=== PATIENT | male | born 1955 | race Caucasian/White ===

== ENCOUNTER 2016-05-14 13:06 | Emergency (ER) | payer OTHER ==
--- NOTE | 2016-05-14 16:26 | ER PHYSICIAN DOCUMENTATION ---
Physician Documentation [facility] Name:Jose Jim Age:60 yrs Sex:Male :1955 Arrival Date:05/14/2016 Time:13:06 BedTrauma A Private MD:Gerardo Garcia EDTraceyChivo Disposition: 05/14 17:22 Chart complete. tl1 Disposition: 05/14/16 14:40 Discharged to Home/Self Care. Impression: Anaphylaxis. - Condition is Good. - Discharge Instructions: ANAPHYLAXIS, General. - Medical Reconciliation form form. - Follow up: Gerardo Garcia MD; When: As needed; Reason: Continuance of care. - Problem is an ongoing problem. - Symptoms are resolved. - Notes: Make sure to return for any recurrence of anaphylaxis symptoms such as wheezing, trouble breathing , swelling anywhere in your airway or mouth, lightheadeness, abdominal pain or vomiting. There is some question in my mind about whether you could have angioedema. Ask your bulk delivery driver, Dr Aguirre, about this possibility. HPI: 13:08 This 60 yrs old Male presents to ER with complaints of Allergic Reaction. tl1 13:10 He is a vague and tangential historian. As best I can tell, he has a long history of tl1 environmental allergies, especially to wood, and has had multiple moderate to severe allergic reactions for which he has had to take an EPI pen. He said he had to be intubated once. His last bad reaction was to redwood dust in 12/17. Since then he sometimes takes variable amounts of prednisone occasionally, and he is remarkably imprecise about this. he says about 5 days ago he was told to stop his allergy medications so that he can have some allergy testing 5 days from now. . he says he was fine this AM. He ate a breakfast with some kind of hot sauce with this, some kind of hot dog, cheese, salt, pepper, and some other at about 10 AM, and choked on some of it while eating. Over the next 20 - 30 minutes, he developed swelling in his tongue, tightness in his throat, cough, and mild dyspnea. Having said that, his vocabulary seems somewhat limited and understanding what he is trying to say is very challenging. At about [id number], he self administered an epi pen along with 50 mg of benadryl, 30 mg of prednisone, and 10 mg of Zyrtec. Over the next half hour or so he felt better, but his symptoms then started to recur and at 1245, he took another 0.3 mg of IM epinephrine, via the epi-pen, and decided to come here. At this time, all his symptoms are improving.. . He says his mouth is dry and this makes it difficult to swallow, but when I interviewed him, his only other symptom was that the lateral aspects of his tongue seemed a little swollen. He also said, and his confirmed , that his neck was, and still is somewhat swollen. No swelling of his face or lips.. Historical: - Allergies: Norvasc; - Home Meds: 1. Metformin Oral 2. Omeprazole Oral 3. Zyrtec Oral 4. ranitidine HCl Oral 5. Prednisone Oral - PMHx: HYPERTENSION; DIABETES - NIDDM; allergic reaction with intubation; Angioedema (August 10, 2015); Acute Allergic Reaction (January 08, 2016); Angioedema - of Tongue (January 04, 2016); - PSHx: Lumbar back surgery; foot surgery; - Tetanus: < 10 years. - Ebola Screening: : Patient negative for fever greater than or equal to 101.5 degrees Fahrenheit, and additional compatible Ebola Virus Disease symptoms. Patient denies exposure to infectious person. Patient denies travel to an Ebola-affected area in the 21 days before illness onset. No symptoms or risks identified at this time. . - Immunization history: Flu Vaccine >1 year. - Social history: Smoking status: Patient states was never smoker of tobacco. ROS: 13:15 Cardiovascular: Negative for chest pain, edema, orthopnea, paroxysmal nocturnal dyspnea.tl1 13:15 Respiratory: Positive for cough, shortness of breath, wheezing, Negative for dyspnea on exertion, hemoptysis, orthopnea. 13:15 Abdomen/GI: Negative for abdominal pain, nausea, vomiting, diarrhea, hematemesis, black/tarry stool, rectal bleeding, bowel incontinence. 13:15 Skin: Positive for Itching both ulnar forearms and elbows, at about the same time as his airway symptoms. No urticaria.. 13:15 All other systems are negative. Exam: 13:15 Constitutional: This is a well developed, well nourished patient who is awake, alert, tl1 and in no acute distress. Head/Face: Normocephalic, atraumatic. 13:15 Eyes: Pupils equal round and reactive to light, extra-ocular motions intact. Lids and tl1 lashes normal. Conjunctiva and sclera are non-icteric and not injected. Cornea within normal limits. Periorbital areas with no swelling, redness, or edema. 13:15 Constitutional: The patient appears obese. 13:15 ENT: Mouth: Lips: normal, Oral mucosa: pink and intact, dry, Gums: normal with healthy appearance, Tongue: large. Hard to tell what change if any, there is from baseline., Posterior pharynx: is normal, Voice: is normal. 13:15 Neck: Exam negative for acute changes, It does not appear grossly swollen to me; his says it seems mildly swollen, still. 13:15 Respiratory: the patient does not display signs of respiratory distress, Respirations: normal, Breath sounds: are normal, no decreased breath sounds, no rales, rhonchi, no stridor, no wheezing. 13:15 Abdomen/GI: Inspection: distension, that is mild, obese., Bowel sounds: normal, Palpation: abdomen is soft and non-tender. 13:15 Back: Well healed midline lumbar scar.. 13:15 Skin: Dry elbows and forearms. No rash. Specifically, no urticaria.. 13:15 Neuro: Exam negative for acute changes. Vital Signs: 13:20 BP 192 / 93; Pulse 106; Resp 22; Pulse Ox 94% on R/A; tg 13:43 Temp 98.5(TE); tg 13:55 BP 181 / 102; Pulse 99; Resp 22; Pulse Ox 91% on R/A; tg 14:36 BP 171 / 82; Pulse 88; Resp 17; Pulse Ox 92% on R/A; tg 15:22 BP 146 / 82; Pulse 16; Resp 18; Pulse Ox 92% on R/A; tg 16:24 Pulse 84; Resp 18; Pulse Ox 93% on R/A; Pain 0/10; tg MDM: 13:08 Patient medically screened. tl1 15:00 Differential diagnosis: anaphylaxis, angioedema. Data reviewed: vital signs, nurses tl1 notes, and as a result, I will discharge patient. Counseling: I had a detailed discussion with the patient and/or guardian regarding: the historical points, exam findings, and any diagnostic results supporting the discharge/admit diagnosis, the need for outpatient follow up, to return to the emergency department if symptoms worsen or persist or if there are any questions or concerns that arise at home. ED course: He was initially hypertensive and tachycardic. He had recently taken all appropriate medications for a possible anaphylactic or anaphylactoid reaction. He was observed for about 3 hours and had gradual and nearly complete resolution of all his symptoms except for a dry mouth. His blood pressure and pulse came down gradually and significantly. I told him I am not sure what to make of his symptoms; possibly breakfast. . Indeed, it is a significant challenge to understand what they are and the timeline. He is not sure what could have set them off. He says he has an appointment with his bulk delivery driver, Dr Aguirre, in 5 days, and I told him to keep it. He has at least 5 epi-pens at home, and I told him that if he ever uses his Epi-pen once, he should come to the ED immediately for observation.. Dispensed Medications: No medications were administered Signatures: Teodoro Montgomery, EVELYNE RN Chivo Wagner MD MD tl1
--- NOTE | 2016-05-14 16:26 | ER NURSING DOCUMENTATION ---
Nurse's Notes [facility] Name:Jose Jim Age:60 yrs Sex:Male :1955 Arrival Date:05/14/2016 Time:13:06 BedTrauma A Private MD:Gerardo Garcia Diagnosis:Anaphylaxis Presentation: 05/14 13:07 Acuity: CHRISTEL 2 tg 13:15 Presenting complaint: Patient states: Pt has a hx of anaphylaxis, today while eating tg eggs felt his throat swelling and began coughing, administered his own epi pen. Symptoms improved for some time, then worsened. Pt administered 2nd epi-pen and took all his PO allergy meds (he had stopped these a few days ago prior to a visit to [facility] that [facility] coming [facility]). Transition of care: patient was not received from another setting of care. Onset: The symptoms/episode began/occurred suddenly, this morning. 13:15 Method Of Arrival: Private Vehicle tg 15:19 Anaphylaxis evaluation, no signs or symptoms of anaphylaxis were noted. tg Triage Assessment: 13:43 General: Appears in no apparent distress, Behavior is cooperative, pleasant. Pain: tg Denies pain. Neuro: Level of Consciousness is awake, alert. Cardiovascular: Capillary refill < 3 seconds. Respiratory: Respiratory effort is even, unlabored. Respiratory: Breath sounds are clear bilaterally. :. Derm: Skin is pink, warm & dry. Historical: - Allergies: Norvasc; - Home Meds: 1. Metformin Oral 2. Omeprazole Oral 3. Zyrtec Oral 4. ranitidine HCl Oral 5. Prednisone Oral - PMHx: HYPERTENSION; DIABETES - NIDDM; allergic reaction with intubation; Angioedema (August 10, 2015); Acute Allergic Reaction (January 08, 2016); Angioedema - of Tongue (January 04, 2016); - PSHx: Lumbar back surgery; foot surgery; - Tetanus: < 10 years. - Ebola Screening: : Patient negative for fever greater than or equal to 101.5 degrees Fahrenheit, and additional compatible Ebola Virus Disease symptoms. Patient denies exposure to infectious person. Patient denies travel to an Ebola-affected area in the 21 days before illness onset. No symptoms or risks identified at this time. . - Immunization history: Flu Vaccine >1 year. - Social history: Smoking status: Patient states was never smoker of tobacco. Screenin:43 Infectious Disease Risk Unable to Obtain. Abuse screen: Denies threats or abuse. Denies tg injuries from another. Nutritional screening: No deficits noted. Assessment: 13:43 See Triage Assessment done by same RN. tg 14:24 Reassessment: Patient states feeling better. tg 14:46 Reassessment: Pt and requested to sit in the waiting room after discharge from ED tg since pt is still not feeling "normal." Pt instead will stay in ED, on monitors, until feeling well enough for DC. . 15:57 Respiratory: Airway is patent. tg Vital Signs: 13:20 BP 192 / 93; Pulse 106; Resp 22; Pulse Ox 94% on R/A; tg 13:43 Temp 98.5(TE); tg 13:55 BP 181 / 102; Pulse 99; Resp 22; Pulse Ox 91% on R/A; tg 14:36 BP 171 / 82; Pulse 88; Resp 17; Pulse Ox 92% on R/A; tg 15:22 BP 146 / 82; Pulse 16; Resp 18; Pulse Ox 92% on R/A; tg 16:24 Pulse 84; Resp 18; Pulse Ox 93% on R/A; Pain 0/10; tg ED Course: 13:07 Patient arrived in ED. ama 13:07 Gerardo Garcia MD is Private Physician. ama 13:07 Teodoro Montgomery RN is Primary Nurse. tg 13:07 Triage completed. tg 13:08 Chivo Webb MD is Attending Physician. tl1 13:41 Arm band placed on. tg 13:41 Valuables Remains with patient. Cardiac Monitoring On for Nurse Monitoring only. Pulse tg Ox - RN Monitoring Only NIBP On - RN Monitoring Only. 13:41 Inserted peripheral IV: 20 gauge in left antecubital area and blood collected. tg 13:55 Assisted to bathroom. tg 15:22 Assisted to bathroom. tg 16:25 Gerardo Garcia MD is Referral Physician. tg Administered Medications: No medications were administered Outcome: 14:40 Discharge ordered by . tl1 16:24 Discharged to home ambulatory, with family. tg 16:24 Condition: stable 16:24 Discharge Assessment: Patient awake and alert. 16:24 Instructed on discharge instructions, follow up and referral plans. 16:24 IV D/Shilo 16:25 Patient left the ED. tg Signatures: Teodoro Montgomery, RN RN Jose Mulligan, Reg Reg Chivo Hopkins MD MD tl1
== END 2016-05-14 16:25 | disposition home or self-care (01) ==
LOC: ER 13:06
DX: T78.2XXA Anaphylactic shock, unspecified, initial encounter (principal); I10 Essential (primary) hypertension; R00.0 Tachycardia, unspecified; L98.8 Other specified disorders of the skin and subcutaneous tissue; R68.2 Dry mouth, unspecified; E11.9 Type 2 diabetes mellitus without complications; Z79.899 Other long term (current) drug therapy
CPT/HCPCS: 99283

== ENCOUNTER 2016-05-20 05:30 | Emergency (ER) | payer OTHER ==
--- NOTE | 2016-05-20 09:41 | ER NURSING DOCUMENTATION ---
Nurse's Notes [facility] Name:Jose Jim Age:60 yrs Sex:Male :1955 Arrival Date:05/20/2016 Time:05:30 Bed3 Private MD:Gerardo Garcia Diagnosis:Angioedema Presentation: 05/20 05:40 Presenting complaint: Patient states: felt like throat was closing up at home, used epi lb pen and took benadryl. denies rash. Transition of care: Home. 05:40 Acuity: CHRISTEL 3 lb 05:40 Method Of Arrival: Walk In lb 05:41 Onset: The symptoms/episode began/occurred suddenly, 1 hour(s) ago. Anaphylaxis lb evaluation, no signs or symptoms of anaphylaxis were noted. Notified ED Physician of Blu Amaral notified. Triage Assessment: 05:42 General: Appears in no apparent distress, Behavior is pleasant. Pain: Denies pain. lb Respiratory: Airway is patent Trachea midline Respiratory effort is even, unlabored, Respiratory pattern is regular, Breath sounds are clear bilaterally. Historical: - Allergies: No known drug Allergies; - Home Meds: 1. Metformin Oral 2. Omeprazole Oral - PMHx: Diabetes - NIDDM; - PSHx: back; - Tetanus: < 10 years. - Ebola Screening: : Patient negative for fever greater than or equal to 101.5 degrees Fahrenheit, and additional compatible Ebola Virus Disease symptoms. Patient denies exposure to infectious person. Patient denies travel to an Ebola-affected area in the 21 days before illness onset. No symptoms or risks identified at this time. . - Immunization history: Flu Vaccine None. - Social history: Smoking status: Patient states was never smoker of tobacco. Patient uses alcohol only on a social basis. - Code Status:: Full code. Screenin:49 Infectious Disease Risk None. Abuse screen: Denies threats or abuse. Denies injuries lb from another. Nutritional screening: No deficits noted. Assessment: 05:49 See Triage Assessment done by same RN. Respiratory: Airway is patent Trachea midline lb Respiratory effort is even, unlabored, Respiratory pattern is regular. 07:26 General: pt resting quietly pt states his throat still feels tight but no tighter then st it has been. pt has no troubles breathing, talking or managing secreations.. 08:39 General: pt states that his throat swelling seems to come and go now getting better and st then coming back. Pt is having no troubles breathing or talking.. 09:40 General: pt states he is feeling better and would like to go home. . st Vital Signs: 05:43 BP 167 / 104; Pulse 83; Resp 15; Pulse Ox 95% on R/A; Weight 124.74 kg; Height 5 ft. 11 lb in. (180.34 cm); Pain 0/10; 06:29 BP 155 / 89; Pulse 68; Resp 17; Pulse Ox 92% on R/A; Pain 0/10; lb 07:27 BP 145 / 87; Pulse 69; Pulse Ox 92% on R/A; st 07:51 Pulse 81; Pulse Ox 90% on R/A; st 08:39 BP 140 / 87; Pulse 65; Pulse Ox 93% on R/A; st 05:43 Body Mass Index 38.35 (124.74 kg, 180.34 cm) lb ED Course: 05:33 Patient arrived in ED. [facility] 05:33 Gerardo Garcia MD is Private Physician. ma1 05:36 Thomas Hurt MD is Attending Physician. 05:40 Nicole Kaur is Primary Nurse. lb 05:41 Triage completed. lb 05:49 Valuables Remains with patient Call light in reach. Side rails up X 1. lb Administered Medications: No medications were administered Outcome: 09:32 Discharge ordered by . 09:40 Discharged to home ambulatory. st 09:40 Condition: improved 09:40 Discharge instructions given to patient, Instructed on discharge instructions, follow up and referral plans. medication usage, Prescriptions given X 2. 09:41 [address] ED[address] st Signatures: India Hall, RN RN Thomas Prasad MD MD jm Bollock, Lynda lb Addison, Melissa [facility]
--- NOTE | 2016-05-20 09:41 | ER PHYSICIAN DOCUMENTATION ---
Physician Documentation [facility] Name:Jose Jim Age:60 yrs Sex:Male :1955 Arrival Date:05/20/2016 Time:05:30 Bed3 Private MD:Gerardo Garcia ED, John Disposition: 05/20/16 09:32 Discharged to Home/Self Care. Impression: Angioedema. - Condition is Good. - Discharge Instructions: ANGIOEDEMA. - Prescriptions for EpiPen 0.3 mg/0.3 mL Injection - inject 0.3 milligram by INTRAMUSCULAR route as needed; 1 packet. Prednisone 20 mg Oral - take 1 tablet by ORAL route once daily As needed; 20 tablet. - Medical Reconciliation form form. - Follow up: Private Physician; When: May 31; Reason: Continuance of care. - Problem is an ongoing problem. - Symptoms have improved. HPI: 05/20 05:30 This 60 yrs old Male presents to ER via Walk In with complaints of Allergic jm Reaction. 05:30 The patient presents with difficulty swallowing, hoarse voice. Onset: The jm symptom(s)/episode began/occurred just prior to arrival, this morning. Associated signs and symptoms: Pertinent negatives: chest pain, Light headed rash, vomiting. Possible causes: The patient has no known obvious cause for the symptoms. At home the patient or guardian has treated the symptoms with Benadryl, EpiPen, steroids. Severity of symptoms: in the emergency department the symptoms have improved mildly. The patient has experienced similar episodes in the past. The patient has been recently seen by a physician: 1 week(s) ago, The patient has been recently seen at the [facility] Emergency Department, last week, for similar complaints. Unknown exposure. Pt w his typical feeling of neck fullness and mild difficulty swallowing. Pt took above meds [facility]. Pt feels a bit better. . Historical: - Allergies: No known drug Allergies; - Home Meds: 1. Metformin Oral 2. Omeprazole Oral - PMHx: Diabetes - NIDDM; - PSHx: back; - Tetanus: < 10 years. - Ebola Screening: : Patient negative for fever greater than or equal to 101.5 degrees Fahrenheit, and additional compatible Ebola Virus Disease symptoms. Patient denies exposure to infectious person. Patient denies travel to an Ebola-affected area in the 21 days before illness onset. No symptoms or risks identified at this time. . - Immunization history: Flu Vaccine None. - Social history: Smoking status: Patient states was never smoker of tobacco. Patient uses alcohol only on a social basis. - Code Status:: Full code. ROS: 05:30 Constitutional: Negative for fever. jm 05:30 ENT: Positive for difficulty swallowing, hoarseness. 05:30 Neck: Positive for swelling. 05:30 Cardiovascular: Negative for chest pain. 05:30 Respiratory: Positive for shortness of breath. 05:30 Abdomen/GI: Negative for nausea, vomiting. 05:30 Skin: Negative for rash. 05:30 Neuro: Negative for dizziness, weakness. 05:30 Psych: Negative for anxiety, depression, drug dependence, alcohol dependence. 05:30 Allergy/Immunology: Positive for allergies. 05:30 All other systems are negative. Exam: 05:30 Constitutional: The patient appears alert, awake, obese. jm 05:30 Head/face: Exam is negative for vang signs, swelling. 05:30 Eyes: Periorbital structures: appear normal, Conjunctiva: normal. 05:30 ENT: Mouth: is normal, Voice: is hoarse. 05:30 ENT: Posterior pharynx: is normal. 05:30 Neck: External neck: swelling, that is mild, of the submental area and thyroid cartilage, Thyroid: appears normal, ROM/movement: is normal. 05:30 Cardiovascular: Rate: normal, Rhythm: regular. 05:30 Respiratory: Respirations: normal, Breath sounds: are normal. 05:30 Abdomen/GI: Bowel sounds: normal, Palpation: abdomen is soft and non-tender. 05:30 Skin: Appearance: Color: pink, no rash present. 05:30 Neuro: Mentation: is normal, Gait: is steady. 05:30 Psych: Behavior/mood is pleasant, cooperative, Affect is calm. Vital Signs: 05:43 BP 167 / 104; Pulse 83; Resp 15; Pulse Ox 95% on R/A; Weight 124.74 kg; Height 5 ft. 11 lb in. (180.34 cm); Pain 0/10; 06:29 BP 155 / 89; Pulse 68; Resp 17; Pulse Ox 92% on R/A; Pain 0/10; lb 07:27 BP 145 / 87; Pulse 69; Pulse Ox 92% on R/A; st 07:51 Pulse 81; Pulse Ox 90% on R/A; st 08:39 BP 140 / 87; Pulse 65; Pulse Ox 93% on R/A; st 05:43 Body Mass Index 38.35 (124.74 kg, 180.34 cm) lb MDM: 05:30 Differential diagnosis: anaphylaxis, angioedema. Data reviewed: vital signs, nurses jm notes, old medical records, and as a result, I will continue to observe the patient. Counseling: I had a detailed discussion with the patient and/or guardian regarding: the historical points, exam findings, and any diagnostic results supporting the discharge/admit diagnosis, the need for outpatient follow up, with the patient's primary care provider, an allergy/paralegal specialist. ED course: Pt observed after he gave himself all the proper and necessary angioedema medications and is starting to feel better. Pt eventually went home w refills for prednisone and EpiPen. . 05:36 Patient medically screened. librado Dispensed Medications: No medications were administered Signatures: India Hall RN RN st Meyer, John, MD MD jm Bollock, Lynda lb
== END 2016-05-20 09:41 | disposition home or self-care (01) ==
LOC: ER 05:30
DX: T78.3XXA Angioneurotic edema, initial encounter (principal); R06.02 Shortness of breath; E11.9 Type 2 diabetes mellitus without complications; Z79.899 Other long term (current) drug therapy
CPT/HCPCS: 99282